=== PATIENT | male | born 1960 | race Caucasian/White ===

== ENCOUNTER 2019-10-17 16:36 | Inpatient (IN) ==
[2019-10-17 17:10] LABS: Bilirubin,Urine Negative (Negative); Blood,Urine Negative (Negative); Clarity,Urine Clear (Clear); Color,Urine Yellow (Yellow); Glucose,Urine (UA) Normal (Normal); Ketones,Urine 15 mg/dL (Negative); Leukocyte Esterase,Urine Negative (Negative); Nitrite,Urine Negative (Negative); PH,Urine 6.5 pH Units (5.0-8.0); Protein,Urine 30 mg/dL (Neg-Trace); Specific Gravity,Urine 1.014 (1.010-1.025); Urobilinogen,Urine Normal (Normal)
[2019-10-17 17:13] LABS: Bacteria,Urine None Seen per hpf (None-Few); Hyaline Casts,Urine None Seen per lpf (None-Few); RBC,Urine 0-3 per hpf (0-3); Squamous Epithelial Cell,Urine Few per lpf (None-Few); WBC,Urine 0-3 per hpf (0-3)
[2019-10-17 17:28] LABS: Basophils % 0.4 %; Eosinophils % 0.4 %; Hematocrit 41.7 % (37.5-50.1); Hemoglobin 14.8 g/dL (12.9-16.9); Immature Granulocytes % 0.2 % (0-4); Lymphocytes # 1.3 K/mcL (0.6-4.6); Lymphocytes % 13.8 %; Mean Corpuscular HGB Conc 35.5 g/dL (31.6-35.5); Mean Corpuscular Volume 90.3 fL (83.0-100.0); Mean Platelet Volume 8.8 fL (9.4-12.4); Monocytes # 0.9 K/mcL (0.0-1.3); Monocytes % 9.9 %; Neutrophils # 6.9 K/mcL (1.6-8.9); Platelet Count 252 K/mcL (140-400); Red Blood Count 4.62 M/mcL (4.19-5.50); Red Cell Distribution Width 12.2 % (11.5-14.5); Segmented Neutrophils % 75.3 %; White Blood Count 9.2 K/mcL (4.3-11.1)
[2019-10-17 17:47] LABS: BUN/Creatinine Ratio 10 (6-26); Blood Urea Nitrogen 6 mg/dL (6-20); Calcium 9.3 mg/dL (8.6-10.3); Carbon Dioxide 23 mEq/L (23-29); Chloride 90 mEq/L (98-107); Glucose 151 mg/dL (70-105); Osmolality,Calculated 261 (280-300); Sodium 125 mEq/L (136-145); eGFR For African Americans > 60 (> 60); eGFR For Non-African Americans > 60 (> 60)
[2019-10-17 17:50] LABS: Amphetamine Screen,Urine Negative ng/mL (Cutoff=1000); Barbiturate Screen,Urine Negative ng/mL (Cutoff=200); Benzodiazepines Screen,Urine Negative ng/mL (Cutoff=200); Cannabinoid Screen,Urine Negative ng/mL (Cutoff = 50); Cocaine Screen,Urine Negative ng/mL (Cutoff= 300); Opiate Screen,Urine Negative ng/mL (Cutoff=300); Phencyclidine Screen,Urine Negative ng/mL (Cutoff=25)
[2019-10-17] MEDS ORDERED: 0.9 % Sodium Chloride 1,000 ML IVC ONE ×2 (17:59→19:47)
[2019-10-17] MEDS ORDERED: Thiamine (B-1) 100 MG TABLET PO ONE (18:11)
[2019-10-17] MEDS ORDERED: Naloxone 0.4 MG/ML INJ IVP PRN (21:11)
[2019-10-17] MEDS ORDERED: Ondansetron 4 MG/2 ML VIAL IVP PRN (21:11)
[2019-10-17] MEDS ORDERED: D5% in Water 1,000 ML IVC PRN (21:14)
[2019-10-17] MEDS ORDERED: Dextrose Gel 15 GM/37.5 ML TUBE PO PRN ×2 (21:14)
[2019-10-17] MEDS ORDERED: *HR* Dextrose 50 % in Water (Syg) 50 ML SYRINGE IVP PRN (21:14)
[2019-10-17] MEDS ORDERED: 0.9 % Sodium Chloride 1,000 ML IVC SCH (21:15)
[2019-10-17 22:19] LABS: BUN/Creatinine Ratio 10 (6-26); Blood Urea Nitrogen 6 mg/dL (6-20); Calcium 9.6 mg/dL (8.6-10.3); Carbon Dioxide 24 mEq/L (23-29); Chloride 96 mEq/L (98-107); Glucose 169 mg/dL (70-105); Osmolality,Calculated 278 (280-300); Sodium 133 mEq/L (136-145); eGFR For African Americans > 60 (> 60); eGFR For Non-African Americans > 60 (> 60)
[2019-10-18] MEDS: Ipratropium/Albuterol Neb 3 ML IH PRN ×2 (00:05→07:54)
[2019-10-18] MEDS: Insulin LISPRO 300 UNITS/3 ML VIAL SQ SCH ×4 (00:08→17:03)
[2019-10-18] MEDS: Gabapentin 300 MG CAPSULE PO SCH ×3 (00:12→21:04)
[2019-10-18] MEDS: *HR* Heparin 5,000 UNIT/ML VIAL SQ SCH ×4 (00:12→21:04)
[2019-10-18 00:52] LABS: Chloride 98 mEq/L (98-107); Potassium 4.1 mEq/L (3.5-5.1); Sodium 132 mEq/L (136-145)
[2019-10-18 01:08] LABS: BUN/Creatinine Ratio 12 (6-26); Blood Urea Nitrogen 8 mg/dL (6-20); Calcium 9.2 mg/dL (8.6-10.3); Carbon Dioxide 26 mEq/L (23-29); Glucose 272 mg/dL (70-105); Osmolality,Calculated 282 (280-300); eGFR For African Americans > 60 (> 60); eGFR For Non-African Americans > 60 (> 60)
[2019-10-18 05:07] LABS: Hematocrit 39.3 % (37.5-50.1); Hemoglobin 14.2 g/dL (12.9-16.9); Mean Corpuscular HGB Conc 36.1 g/dL (31.6-35.5); Mean Corpuscular Volume 88.5 fL (83.0-100.0); Mean Platelet Volume 9.3 fL (9.4-12.4); Platelet Count 265 K/mcL (140-400); Red Blood Count 4.44 M/mcL (4.19-5.50); Red Cell Distribution Width 12.5 % (11.5-14.5); White Blood Count 6.7 K/mcL (4.3-11.1)
[2019-10-18 05:24] LABS: BUN/Creatinine Ratio 11 (6-26); Blood Urea Nitrogen 7 mg/dL (6-20); Calcium 8.9 mg/dL (8.6-10.3); Carbon Dioxide 26 mEq/L (23-29); Chloride 99 mEq/L (98-107); Glucose 220 mg/dL (70-105); Osmolality,Calculated 287 (280-300); Potassium 4.3 mEq/L (3.5-5.1); Sodium 136 mEq/L (136-145); eGFR For African Americans > 60 (> 60); eGFR For Non-African Americans > 60 (> 60)
[2019-10-18] MEDS: Budesonide/Formoterol 80/4.5 1 PUFF INH IH SCH ×2 (07:54→20:35)
[2019-10-18] MEDS: Finasteride 5 MG TABLET PO SCH (08:18)
[2019-10-18] MEDS: Nicotine 14 MG PATCH.TD24 TD SCH (08:18)
[2019-10-18] MEDS ORDERED: ARIPiprazole 10 MG TABLET PO SCH (09:00)
[2019-10-18] MEDS: Tiotropium 18 MCG inhalation IH SCH (11:07)
[2019-10-18 11:24] LABS: BUN/Creatinine Ratio 13 (6-26); Blood Urea Nitrogen 10 mg/dL (6-20); Calcium 8.8 mg/dL (8.6-10.3); Carbon Dioxide 24 mEq/L (23-29); Chloride 97 mEq/L (98-107); Glucose 324 mg/dL (70-105); Osmolality,Calculated 278 (280-300); Potassium 4.1 mEq/L (3.5-5.1); Sodium 128 mEq/L (136-145); eGFR For African Americans > 60 (> 60); eGFR For Non-African Americans > 60 (> 60)
[2019-10-18 12:20] LABS: BUN/Creatinine Ratio 13 (6-26); Blood Urea Nitrogen 9 mg/dL (6-20); Calcium 8.6 mg/dL (8.6-10.3); Carbon Dioxide 22 mEq/L (23-29); Chloride 89 mEq/L (98-107); Glucose 274 mg/dL (70-105); Osmolality,Calculated 262 (280-300); Potassium 4.1 mEq/L (3.5-5.1); Sodium 122 mEq/L (136-145); eGFR For African Americans > 60 (> 60); eGFR For Non-African Americans > 60 (> 60)
[2019-10-18] MEDS ORDERED: 0.9 % Sodium Chloride 1,000 ML IVC SCH (13:15)
[2019-10-18] MEDS ORDERED: Haloperidol Lactate 5 MG/ML VIAL IM PRN (15:50)
[2019-10-18] MEDS ORDERED: ARIPiprazole 10 MG TABLET PO ONE (16:15)
[2019-10-18] MEDS: 0.9 % Sodium Chloride 1,000 ML IVC SCH (17:10)
[2019-10-19 01:12] LABS: BUN/Creatinine Ratio 11 (6-26); Blood Urea Nitrogen 6 mg/dL (6-20); Calcium 8.9 mg/dL (8.6-10.3); Carbon Dioxide 22 mEq/L (23-29); Chloride 98 mEq/L (98-107); Glucose 213 mg/dL (70-105); Osmolality,Calculated 276 (280-300); Sodium 131 mEq/L (136-145); eGFR For African Americans > 60 (> 60); eGFR For Non-African Americans > 60 (> 60)
[2019-10-19] MEDS: *HR* Heparin 5,000 UNIT/ML VIAL SQ SCH ×3 (05:21→21:29)
[2019-10-19 06:26] LABS: Sodium, Urine 35.4 mEq/L
[2019-10-19] MEDS: Budesonide/Formoterol 80/4.5 1 PUFF INH IH SCH ×2 (08:03→19:43)
[2019-10-19] MEDS: Tiotropium 18 MCG inhalation IH SCH (08:03)
[2019-10-19] MEDS: Finasteride 5 MG TABLET PO SCH (08:59)
[2019-10-19] MEDS: Gabapentin 300 MG CAPSULE PO SCH ×2 (08:59→21:29)
[2019-10-19] MEDS: ARIPiprazole 10 MG TABLET PO SCH (08:59)
[2019-10-19] MEDS: Nicotine 14 MG PATCH.TD24 TD SCH (09:00)
[2019-10-19] MEDS: Insulin LISPRO 300 UNITS/3 ML VIAL SQ SCH ×3 (09:00→18:05)
[2019-10-19] MEDS: 0.9 % Sodium Chloride 1,000 ML IVC SCH (15:12)
[2019-10-20] MEDS: *HR* Heparin 5,000 UNIT/ML VIAL SQ SCH ×3 (05:16→21:47)
[2019-10-20 06:37] LABS: BUN/Creatinine Ratio 13 (6-26); Blood Urea Nitrogen 8 mg/dL (6-20); Calcium 9.4 mg/dL (8.6-10.3); Carbon Dioxide 26 mEq/L (23-29); Chloride 98 mEq/L (98-107); Glucose 222 mg/dL (70-105); Osmolality,Calculated 287 (280-300); Potassium 4.1 mEq/L (3.5-5.1); Sodium 136 mEq/L (136-145); eGFR For African Americans > 60 (> 60); eGFR For Non-African Americans > 60 (> 60)
[2019-10-20] MEDS: Budesonide/Formoterol 80/4.5 1 PUFF INH IH SCH ×2 (07:36→20:37)
[2019-10-20] MEDS: Tiotropium 18 MCG inhalation IH SCH (07:36)
[2019-10-20] MEDS ORDERED: *HR* HYDROcodone/Acet 5/325 mg TABLET PO PRN (07:41)
[2019-10-20] MEDS ORDERED: NICOTINE POLACRILEX 4 MG BC PRN (07:41)
[2019-10-20] MEDS ORDERED: Ipratropium/Albuterol Neb 3 ML IH PRN (07:41)
[2019-10-20] MEDS: Finasteride 5 MG TABLET PO SCH (08:41)
[2019-10-20] MEDS: ARIPiprazole 10 MG TABLET PO SCH (08:41)
[2019-10-20] MEDS: Nicotine 14 MG PATCH.TD24 TD SCH (08:42)
[2019-10-20] MEDS: Gabapentin 300 MG CAPSULE PO SCH ×2 (08:42→21:14)
[2019-10-20] MEDS: Insulin LISPRO 300 UNITS/3 ML VIAL SQ SCH ×3 (08:46→17:45)
[2019-10-20] MEDS ORDERED: hydrOXYzine pamoate 25 MG CAPSULE PO PRN (13:12)
[2019-10-21 03:20] LABS: Hematocrit 42.8 % (37.5-50.1); Hemoglobin 15.5 g/dL (12.9-16.9); Mean Corpuscular HGB Conc 36.2 g/dL (31.6-35.5); Mean Corpuscular Volume 88.4 fL (83.0-100.0); Mean Platelet Volume 9.1 fL (9.4-12.4); Platelet Count 276 K/mcL (140-400); Red Blood Count 4.84 M/mcL (4.19-5.50); Red Cell Distribution Width 12.3 % (11.5-14.5); White Blood Count 6.9 K/mcL (4.3-11.1)
[2019-10-21 03:39] LABS: BUN/Creatinine Ratio 15 (6-26); Blood Urea Nitrogen 10 mg/dL (6-20); Calcium 9.7 mg/dL (8.6-10.3); Carbon Dioxide 27 mEq/L (23-29); Chloride 98 mEq/L (98-107); Glucose 245 mg/dL (70-105); Magnesium 1.9 mg/dL (1.6-2.6); Osmolality,Calculated 285 (280-300); Sodium 134 mEq/L (136-145); eGFR For African Americans > 60 (> 60); eGFR For Non-African Americans > 60 (> 60)
[2019-10-21] MEDS: *HR* Heparin 5,000 UNIT/ML VIAL SQ SCH (05:04)
[2019-10-21 06:37] VITALS: BP 166/90
[2019-10-21] MEDS: Nicotine 14 MG PATCH.TD24 TD SCH (08:45)
[2019-10-21] MEDS: Finasteride 5 MG TABLET PO SCH (08:46)
[2019-10-21] MEDS: ARIPiprazole 10 MG TABLET PO SCH (08:46)
[2019-10-21] MEDS: Gabapentin 300 MG CAPSULE PO SCH (08:46)
[2019-10-21] MEDS: Insulin LISPRO 300 UNITS/3 ML VIAL SQ SCH (08:57)
[2019-10-21] MEDS: Budesonide/Formoterol 80/4.5 1 PUFF INH IH SCH (10:02)
[2019-10-21] MEDS: Tiotropium 18 MCG inhalation IH SCH (10:04)
== END 2019-10-21 10:11 | DRG 426 ==
LOC: 3BNU 16:36 → EMEROOARM 16:36 → SUATTDRO 20:19 → 3BNU 21:07
PROVIDERS: ADMIT Internal Medicine; ATTEND Internal Medicine